=== PATIENT | female | born 1950 | race Caucasian/White ===

== ENCOUNTER 2016-12-04 07:01 | Day surgery (SDC) | payer MEDICARE ==
[2016-12-04] MEDS ORDERED: PROPOFOL 500 MG/50 ML EMU IV ONE (08:53)
[2016-12-04 09:40] VITALS: RESP 18
[2016-12-04 09:55] VITALS: TEMP 96.4
[2016-12-04 10:15] VITALS: BP 167/78; PULSE 76; O2SAT 98
== END 2016-12-04 10:17 | disposition home or self-care (01) | DRG 951 ==
LOC: SURG 07:01
PROVIDERS: ATTEND Surgery
DX: Z12.11 Encounter for screening for malignant neoplasm of colon (principal); K63.9 Disease of intestine, unspecified
CPT/HCPCS: J2001; J2704